=== PATIENT | female | born 1960 | race American Indian/Alaskan Native ===

== ENCOUNTER 2021-05-15 14:51 | Emergency (ER) | payer OTHER, SELFPAY ==
[2021-05-15 15:14] VITALS: BP 152/97; PULSE 85; RESP 16; TEMP 36.9; O2SAT 97; BMI 30.5
--- NOTE | 2021-05-15 16:57 | ED.WOUNDLAC ---
HPI - Wound/Laceration General Chief Complaint: Wound/Laceration Stated Complaint: Fall, Lip, Hands, and Knees Injury Time Seen by Provider: 05/15/21 16:31 History of Present Illness HPI narrative: Patient is a 61-year-old female who presents with lip laceration after trip and fall on some a curb. She denies any other injury she is not on any blood thinners. No loss of consciousness. She denies any neck pain. No loose teeth. Related Data Allergies Allergy/AdvReac Type Severity Reaction Status Date / Time No Known Drug Allergies Allergy Verified 05/15/21 15:20 Review of Systems Review of Systems Narrative: GENERAL: Denies chills,fever HEENT: Denies throat pain RESPIRATORY: Denies dyspnea, cough, wheezing CARDIOVASCULAR: Denies chest pain, palpitations GASTROINTESTINAL: Denies nausea, vomiting MUSCULOSKELETAL: Denies extremity pain, injury SKIN: See HPI NEUROLOGIC: Denies weakness, dizziness, headache, numbness 8 point review of systems is negative except for those stated above and HPI Exam Initial Vital Signs Initial Vital Signs: Vital Signs Temperature 98.4 F 05/15/21 15:14 Pulse Rate 85 05/15/21 15:14 Respiratory Rate 16 05/15/21 15:14 Blood Pressure 152/97 H 05/15/21 15:14 Pulse Oximetry 97 05/15/21 15:14 GENERAL: Well-appearing, well-nourished and in no acute distress. HEENT: Head atraumatic,EOMI, pupils reactive, face symmetric, moist mucous membranes. NECK: No vertebral tenderness no step-offs full flexion extension and rotation CARDIOVASCULAR: Regular rate and rhythm without murmurs, rubs or gallops. RESPIRATORY: Breath sounds equal bilaterally, no wheezes rales or rhonchi. ABDOMEN: Soft, nontender. Normoactive bowel sounds all 4 quadrants. No guarding or rebound. EXTREMITIES: Normal range of motion, no clubbing or edema. Neurovascularly intact NEUROLOGICAL: Alert and oriented x4.Normal gait and speech. SKIN: Lower lip right 2 cm laceration specially for does not go through and through [facility] Adult Head Mouth and Nose: 1. 2cm laceration mild involvement of vermilion border Procedures Laceration Repair Laceration 1: Site: lip (Lower) Side (If applicable): right Size (cm): 2 Description: linear and involves florencia border (barely) Depth: simple, single layer Course Orders Ordered: Discontinued Medications Diphtheria/Tetanus/Acell Pertussis (Tet,Diph,Pertuss(Acell),Vac/Pf 0.5 Ml Syringe) 0.5 ml IM .ONCE ONE Stop: 05/15/21 17:04 Last Admin: 05/15/21 17:30 Dose: 0.5 ml Documented by: TRENTON Lidocaine HCl (Lidocaine 1% (Pf)) 4 ml SUBCUT NOW ONE Stop: 05/15/21 17:04 Last Admin: 05/15/21 17:31 Dose: 4 ml Documented by: TRENTON Vital Signs Vital signs: Vital Signs - 8 hr 05/15/21 15:14 05/15/21 17:35 Temperature 98.4 F Pulse Rate 85 57 L Respiratory Rate 16 16 Blood Pressure 152/97 H 179/76 H Pulse Oximetry 97 98 Discharge Plan Departure Patient Disposition: Home Clinical Impression: Laceration of lower lip Instructions: DI for Laceration Repair Activity Restrictions/Additional Instructions: *You have been diagnosed with laceration of lower lip *What to do: At this time her sutures should dissolve over the next 2 weeks. Please apply antibiotic ointment 1-2 times daily. *Continue to take medications as directed *Follow up with your primary care provider in 2-3 days *Return to ER if you should have redness pus swelling pain or any new, worsening or concerning symptoms
[2021-05-15] MEDS: TET,DIPH,PERTUSS(ACELL),VAC/PF 0.5 ML SYRINGE IM (17:30)
[2021-05-15] MEDS: LIDOCAINE 1% (PF) 4 ML SUBCUT (17:31)
[2021-05-15 17:35] VITALS: BP 179/76; PULSE 57; RESP 16; O2SAT 98
== END 2021-05-15 17:43 | disposition home or self-care (01) ==
PROVIDERS: Emergency Provider Emergency Medicine
DX: S01.511A Laceration without foreign body of lip, initial encounter (principal); W19.XXXA Unspecified fall, initial encounter; Z23 Encounter for immunization
CPT/HCPCS: 12011; 90471; 99283; 90715